=== PATIENT | female | born 1980 | race Caucasian/White ===

== ENCOUNTER 2023-01-04 13:04 | Emergency (ER) | payer OTHER ==
[~2023-01-04] VITALS: Ht 157.5 cm; Wt 54.9 kg
[2023-01-04] MEDS ORDERED: ACETAMINOPHEN 325 MG TABLET ONE (13:30)
[2023-01-04] MEDS ORDERED: IBUPROFEN 600 MG TABLET PO ONE (13:30)
[2023-01-04] MEDS ORDERED: ACETAMINOPHEN 325 MG TABLET PO ONE (13:30)
[2023-01-04] MEDS ORDERED: IBUPROFEN 600 MG TABLET ONE (13:31)
[2023-01-04] MEDS ORDERED: IBUP-1955 PO (15:26)
[2023-01-04] MEDS ORDERED: HYDR-4303 PO (15:26)
[2023-01-04 15:32] VITALS: BP 142/78; TEMP 98.6; O2SAT 100
== END 2023-01-04 15:32 | disposition home or self-care (01) ==
LOC: ER 13:10
DX: S59.292A Other physeal fracture of lower end of radius, left arm, initial encounter for closed fracture (principal); Z60.2 Problems related to living alone; V00.131A Fall from skateboard, initial encounter; Y93.51 Activity, roller skating (inline) and skateboarding; Y92.89 Other specified places as the place of occurrence of the external cause; Y99.8 Other external cause status
CPT/HCPCS: 73110